=== PATIENT | female | born 1950 | race Caucasian/White ===

== ENCOUNTER 2016-08-09 16:39 | Emergency (ER) | payer OTHER ==
[2016-08-09 17:15] LABS: URINE BILIRUBIN NEGATIVE (NEGATIVE); URINE BLOOD 1+ (NEGATIVE); URINE GLUCOSE (UA) NORMAL (NORMAL); URINE KETONE NEGATIVE (NEGATIVE); URINE LEUKOCYTE ESTERASE 2+ (NEGATIVE); URINE NITRATE NEGATIVE (NEGATIVE); URINE PROTEIN NEGATIVE (NEGATIVE); UROBILINOGEN NORMAL mg/dL (<1.0)
[2016-08-09 17:38] LABS: URINE BACTERIA 2+ (NONE SEEN); URINE RBC 0-5 /[HPF] (0-2); URINE SQUAMOUS EPITHELIAL CELL 0-10 /[HPF] (NONE SEEN); URINE WBC >15 /[HPF] (0-5)
[2016-08-09 19:28] LABS: BASO % 0.1 % (0.1-1.2); GRAN % 89.9 % (34.0-71.1); HEMATOCRIT 38.6 % (34-45); HEMOGLOBIN 13.1 g/dL (11.2-15.7); LYMPH # 0.4 10_X3_uL (1.2-3.7); LYMPH % 2.6 % (19.3-51.7); MEAN CORPUSCULAR HGB CONC 33.9 g/dL (32.0-36.0); MEAN CORPUSCULAR VOLUME 94.4 fL (79-95); MEAN PLATELET VOLUME 9.8 fl (7.5-11.5); MONO # 1.2 10_X3_uL (0.2-0.9); MONO % 7.4 % (4.7-12.5); PLATELET COUNT 235 x10_3/uL (182-369); RED BLOOD COUNT 4.09 x10_6/uL (3.9-5.2); WHITE BLOOD COUNT 16.7 x10_3/uL (4.0-10.0)
[2016-08-09 19:42] LABS: BILIRUBIN,TOTAL 0.67 mg/dL (0.0-1.0); CALCIUM 9.3 mg/dL (8.7-10.7); CREATININE 1.4 mg/dL (0.6-1.3); POTASSIUM 3.3 mmol/L (3.5-5.1); TOTAL PROTEIN 7.3 gm/dL (6.4-8.2)
== END 2016-08-09 23:55 | disposition short-term general hospital (02) ==
LOC: ER 16:39
PROVIDERS: Internal Medicine
DX: N20.1 Calculus of ureter (principal); E87.6 Hypokalemia; R10.32 Left lower quadrant pain; R10.12 Left upper quadrant pain; M19.90 Unspecified osteoarthritis, unspecified site; E07.9 Disorder of thyroid, unspecified; Z88.5 Allergy status to narcotic agent; Z79.899 Other long term (current) drug therapy
CPT/HCPCS: 36415; 80053; 81001; 83605; 83690; 85025; 87040; 87086; 87186; 96361; 96365; 96375; 96376; 99070; 99284; 99285-25; J1170